=== PATIENT | female | born 1955 | race Caucasian/White ===

== ENCOUNTER 2021-05-10 13:00 | Emergency (ER) | payer OTHER, MEDICAID ==
[~2021-05-10] VITALS: Ht 170.2 cm; Wt 90.7 kg
[2021-05-10 13:04] VITALS: BP 190/110
--- NOTE | 2021-05-10 15:51 | NUR ---
ALONDRA LAZAR EXAMINING PT
--- NOTE | 2021-05-10 16:00 | NUR ---
PT C/O LEFT LEG PAIN S/P FALL X1 WEEK AGO. 12/12 PAIN. PMH: HTN, DEPRESSION ALLERGY: PCN, TRAMADOL
[2021-05-10] MEDS ORDERED: KETOROLAC 30 MG/ML VIAL ONE (16:19)
[2021-05-10] MEDS ORDERED: KETOROLAC 30 MG/ML VIAL IM ONE (16:20)
--- NOTE | 2021-05-10 17:19 | NUR ---
PT'S LEFT ANKLE WRAPED WITH 3" ARCELIA WRAP. CMS WNL BEFORE AND AFTER.
[2021-05-10 17:31] VITALS: BP 190/110
--- NOTE | 2021-05-10 17:32 | NUR ---
Patient discharged with v/s stable. Written and verbal after care instructions FOR ANKLE SPRAIN given and explained. Patient verbalized understanding. Ambulatory. All questions addressed prior to discharge. Advised to follow up with PMD.
--- NOTE | 2021-05-10 17:39 | NUR ---
PT LEFT FOOT IMMOBILIZED WITH BOOT IMMOBILISER pa NOTIFIED
--- NOTE | 2021-05-10 18:01 | NUR ---
bus pass given to patient at this time
== END 2021-05-10 17:32 | disposition home or self-care (01) ==
LOC: MED 13:00
DX: S93.402A Sprain of unspecified ligament of left ankle, initial encounter (principal); I10 Essential (primary) hypertension; Z88.0 Allergy status to penicillin; Z88.5 Allergy status to narcotic agent; W19.XXXA Unspecified fall, initial encounter; Y93.89 Activity, other specified; Y92.89 Other specified places as the place of occurrence of the external cause; Y99.8 Other external cause status
CPT/HCPCS: 73610; 81025; 96372; 99283; J1885